=== PATIENT | male | born 1980 | race Two or more races ===

== ENCOUNTER 2019-02-06 09:41 | Emergency (ER) | payer SELFPAY ==
[~2019-02-06] VITALS: Ht 160 cm; Wt 77.1 kg
[2019-02-06 09:50] VITALS: BP 156/81
[2019-02-06] MEDS ORDERED: PRED20TA PO (09:53)
--- NOTE | 2019-02-06 09:53 | PHYS DOC ---
Past Medical History Past Medical History: No Pertinent History Additional Past Medical Histor: No relevant hx Social History Narrative: no relevant hx Adult General Chief Complaint Chief Complaint: SKIN RASH/ABSCESS HPI HPI 38 yo with poison oak for a few days -location face and neck -druation constant no alleviating factors. -nonradiating. ROS neg for cp/soa/n/v. all other ros is neg. ED course: 38 yo with poison oak -calamine lotion -hydrocortisone - not on face prednisone [id number] f/[id number] pcp in 2 days. Physical Exam Physical Exam Constitutional: Well developed, well nourished, no acute distress, non-toxic appearance. [] HENT: Normocephalic, atraumatic, bilateral external ears normal, oropharynx moist, no oral exudates, nose normal. []pt has a maculopapular rash on the face and neck Eyes: PERRLA, EOMI, conjunctiva normal, no discharge. [] Neck: Normal range of motion, no tenderness, supple, no stridor. [] Cardiovascular:Heart rate regular rhythm, no murmur [] Lungs & Thorax: Bilateral breath sounds clear to auscultation [] Abdomen: Bowel sounds normal, soft, no tenderness, no masses, no pulsatile masses. [] Skin: Warm, dry, no erythema, no rash. [] Back: No tenderness, no CVA tenderness. [] Extremities: No tenderness, no cyanosis, no clubbing, ROM intact, no edema. [] Neurologic: Alert and oriented X 3, normal motor function, normal sensory function, no focal deficits noted. [] Psychologic: Affect normal, judgement normal, mood normal. [] EKG EKG [] Radiology/Procedures Radiology/Procedures [] Course & Med Decision Making Course & Med Decision Making Pertinent Labs and Imaging studies reviewed. (See chart for details) [] Dragon Disclaimer Dragon Disclaimer This electronic medical record was generated, in whole or in part, using a voice recognition dictation system. Departure Departure Impression: Primary Impression: Poison oak dermatitis Disposition: 01 HOME, SELF-CARE Condition: STABLE Patient Instructions: [place]ison [place] Additional Instructions: Thank you for allowing us to participate in your care today. Return to the emergency department you have any new or worsening symptoms, or if you are concerned for any reason. Return to emergency department if you have any new or concerning symptoms including but not limited to fever, chills, nausea, vomiting, intractable pain, any new rashes, chest pain, shortness of air, uncontrolled bleeding, difficulty breathing, and/or vision loss. Follow up with your primary care physician within 1-2 days. Call your Primary Doctor tomorrow and inform them of your visit today. If you do not have a [facility] care provider we are happy to provide you with a list of our primary care providers contact information. This condition should be evaluated by your primary care physician and any recommended consulting services for continued management within 2 days after discharge. If at any time, you are having difficulty getting into your primary care doctor or a specialist, return to the emergency department. Scripts Prednisone (PREDNISONE) 20 Mg Tablet 1 TAB PO DAILY, #30 TAB 0 Refills Take 60 mg (3 tabs) daily for 5 days, then 40 mg (2 tabs) daily for 5 days, then 20 mg (1 tab) daily for 5 days. Prov: MARK MANCINI MD 02/06/19 MARK MANCINI MD Feb 06, 2019 09:53
== END 2019-02-06 09:59 | disposition home or self-care (01) ==
LOC: ER 09:41
DX: L23.7 Allergic contact dermatitis due to plants, except food (principal)
CPT/HCPCS: 99283